=== PATIENT | male | born 1995 | race African-American/Black ===

== ENCOUNTER 2017-08-04 10:01 | Emergency (ER) | payer SELFPAY ==
[~2017-08-04] VITALS: Ht 185.4 cm; Wt 77.0 kg
[2017-08-04] MEDS ORDERED: LIDOCAINE HCL/PF 1% 10 MG/ML 30ML VIAL INFIL ONE (10:45)
[2017-08-04] MEDS ORDERED: LIDOCAINE HCL/PF 1% 10 MG/ML 5ML VIAL IJ ONE (10:45)
[2017-08-04] MEDS ORDERED: BACITRACIN ZINC OINT UDPKT TOP ONE (10:45)
[2017-08-04] MEDS ORDERED: TETANUS, DIPHTHERIA, PERTUSSIS VAC/PF 0.5ML (>7YR OLD) IM ONE (10:45)
[2017-08-04 12:12] VITALS: BP 136/55
== END 2017-08-04 12:13 | disposition home or self-care (01) ==
LOC: ER 10:26
DX: S61.512A Laceration without foreign body of left wrist, initial encounter (principal); F17.200 Nicotine dependence, unspecified, uncomplicated; F12.10 Cannabis abuse, uncomplicated; W26.0XXA Contact with knife, initial encounter; Y93.89 Activity, other specified; Y92.89 Other specified places as the place of occurrence of the external cause; Y99.0 Civilian activity done for income or pay
CPT/HCPCS: 12002; 90471; 90715; 99283; J3490; X7700

== ENCOUNTER 2017-08-09 12:42 | Emergency (ER) | payer SELFPAY ==
[~2017-08-09] VITALS: Ht 195.6 cm; Wt 77.0 kg
[2017-08-09 12:48] VITALS: BP 148/78
[2017-08-09] MEDS ORDERED: ACET-2178 PO (12:51)
== END 2017-08-09 13:34 | disposition home or self-care (01) ==
LOC: ER 13:34
DX: T81.4XXA Infection following a procedure, initial encounter (principal); G89.18 Other acute postprocedural pain; Z48.02 Encounter for removal of sutures; F17.200 Nicotine dependence, unspecified, uncomplicated; F12.10 Cannabis abuse, uncomplicated
CPT/HCPCS: 99283